=== PATIENT | male | born 1955 | race Caucasian/White ===

== ENCOUNTER 2019-10-09 13:14 | Outpatient (RCR) | payer MEDICARE, SELFPAY | END 2019-11-04 23:59 | disposition home or self-care (01) | LOC: SPT 13:14 | PROVIDERS: Family Provider Family Medicine; PCP Family Medicine; Referring Provider Urology; Visit Provider Urology | DX: R39.9 Unspecified symptoms and signs involving the genitourinary system (principal); N39.3 Stress incontinence (female) (male) | CPT/HCPCS: 97110; 97140; 97161; 97530 ==

== ENCOUNTER 2020-02-04 06:00 | Outpatient (RCR) | payer MEDICARE, SELFPAY | END 2020-03-05 23:59 | disposition home or self-care (01) | LOC: SPT 06:00 | PROVIDERS: Family Provider Family Medicine; PCP Family Medicine; Referring Provider Urology; Visit Provider Urology | DX: N39.3 Stress incontinence (female) (male) (principal); R39.9 Unspecified symptoms and signs involving the genitourinary system | CPT/HCPCS: 97110; 97140; 97530 ==